=== PATIENT | male | born 1970 | race American Indian/Alaskan Native ===

== ENCOUNTER 2023-11-15 07:17 | Emergency (ER) | payer OTHER, SELFPAY ==
[2023-11-15] VITALS (7 sets, daily range): BP systolic 116–137; BP diastolic 73–95; BMI 25.6
--- NOTE | 2023-11-15 07:59 | ED.GENMED ---
History of Present Illness
General
Chief Complaint: Chest Pain
Source: patient and family
Exam Limitations: none
Time Seen by Provider: 11/15/23 07:36
Nursing documentation reviewed up to this point in time: agreed with
Travel History
Have you had any contact with someone who has COVID-19?: No
Do you have any symptoms of coronavirus? Fever > 100 degrees, chills, cough, shortness of breath, sore throat, loss of taste or smell, muscle aches, or headache?: No
History of Present Illness
History of Present Illness:
52-year-old male presenting to the emergency department today with concerns of abrupt chest comfort waking him from his sleep 6 hours prior to arrival to the emergency department described as central chest pain pressure with associated shortness of
breath no specific palliation or provocation denies similar symptoms in the past denies any lightheadedness, diaphoresis nausea or vomiting. No recent trauma surgery immobilization history of blood clots leg swelling. Patient is not a smoker or
drinker
Review of Systems
Review of Systems
Allergies reviewed?: Yes
All Other Systems: ROS reviewed and negative except as documented in HPI and ROS
Phy Exam
Physical Exam
Physical Exam:
GENERAL: Alert , in no apparent distress
EYE: pupils equal and reactive
NECK: Supple, no significant adenopathy.
ENT: o/p clr, mmm.
CARDIAC: Regular rate and rhythm .
LUNGS: Clear breath sounds bilaterally, no acute respiratory distress, no wheezes/rales/rhonchi
ABDOMEN: Soft, without focal tenderness, no r/g, no cvat
NEUROLOGICAL: Alert and oriented, no focal neuro deficits
SKIN: Warm and dry, skin intact.
MUSCULOSKELETAL: No edema, well perfused.
PSYCH: Normal and appropriate interaction.
Scores
Heart Score for Chest Pain Patients
STEMI patient?: No
History: Slightly or Non-Suspicious
ECG: Normal
Age: >45 - <65 years
Risk Factors: 1 or 2 Risk Factors
Troponin: </= Normal Limit
Heart Score for Chest Pain Patients: 2
Heart Score Risk: 2.5% MACE over next 6 weeks
Course
Orders/Labs/Results
Orders:
Orders
11/15/23 07:18
Electrocardiogram (*1) Urgent
Reason for Study: Chest Pain
EKG- Treatment ONCE
11/15/23 07:59
Cardiac Monitoring- Treatment ONCE
Aspirin 325 mg PO NOW STA
CR Chest - 2 Views Urgent
Comment:
Reason For Exam: cp
11/15/23 08:12
Complete Blood Count/With Diff Urgent
Comprehensive Metabolic Panel Urgent
Magnesium Urgent
Troponin I Urgent
11/15/23 10:40
Troponin I Urgent
Abnormal Lab Results
11/15/23
08:12
RBC 4.63 L 10^6/uL
(4.70-6.10)
Absolute Eos (auto) 0.8 H 10^3/uL
(0-0.7)
Eosinophils % 11.5 H %
(0-6)
Glucose 112 H mg/dl
(70-99)
11/15/23 08:12
11/15/23 08:12
Vital Signs
Initial and Last Documented VS:
Initial Vital Signs
Temp Pulse Resp BP Pulse Ox
98.0 F 67 20 135/95 100
11/15/23 07:19 11/15/23 07:19 11/15/23 07:19 11/15/23 07:19 11/15/23 07:19
Last Documented Vital Signs
Temp Pulse Resp BP Pulse Ox
98.0 F 58 13 121/85 100
11/15/23 07:19 11/15/23 11:15 11/15/23 11:15 11/15/23 11:00 11/15/23 11:15
MDM/Problems Addressed
MDM/Problems Addressed:
52-year-old male presenting to the emergency department today with concerns of chest pain waking him from his sleep 6 hours prior to arrival. Denies similar symptoms in the past no history of known heart disease only history of high cholesterol.
Vital signs normal upon arrival no history of blood clots no recent trauma surgery immobilization PE very unlikely no leg swelling. Normal heart and lung examination EKG nonischemic. No events on the monitor second troponin negative patient per
stable for outpatient follow-up with cardiology return precautions given.
*Critical Care Note
Total Time (30-74mins, 75-104mins- exclusive of procedures): Not Applicable
ED Attending Note
-
Portions of this chart may have been created with voice recognition software.� Occasional wrong word or��sound alike� substitutions may have occurred due to the inherent limitations of voice recognition software.
Discharge Plan
Departure
Patient Disposition: Home (Routine Discharge)
Date of Disposition: 11/15/23
Time of Disposition: 11:52
Patient with high blood pressure during this ER visit?: No
Condition: Good
Covid-19: Not Applicable
Discharge Problem:
Chest pain
Instructions: Chest Pain [facility] Follow Up
Referrals:
Jeana Quevedo PA-C [Family Provider] -
Activity Restrictions/Additional Instructions:
You came to the emergency department today with concerns of chest pain. Here you had a reassuring assessment. Please follow closely with cardiology. Return to the emergency department for any worsening, new or concerning symptoms.
Interventions
Interventions:
*Risk Screen - Suicide Last Done: 11/15/23 07:59
*General Assessment Last Done: 11/15/23 07:59
*Neglect/Abuse Screening Last Done: 11/15/23 07:59
ED- Fall Risk Assessment Last Done: 11/15/23 07:59
*ED COVID-19 Vaccine History Last Done: 11/15/23 07:59
ED- Cardiac Assessment Last Done: 11/15/23 07:59
Discharge Date and Time
Print Language: Tran
[2023-11-15] MEDS: ASPIRIN 325 MG PO (08:12)
[2023-11-15 08:25] LABS: % Basophils 0.7 % (0-2); % Eosinophils 11.5 % (0-6); % Immature Granulocytes 0.3 % (0-0.5); % Lymphocytes 29.5 % (20.5-51.1); % Monocytes 6.4 % (1.7-9.3); % Neutrophils 51.6 % (42.2-75.2); Absolute Basophils 0.1 10^3/uL (0-0.2); Absolute Eosinophils 0.8 10^3/uL (0-0.7); Absolute Lymphocytes 2.2 10^3/uL (1.2-3.4); Absolute Monocytes 0.5 10^3/uL (0.1-0.6); Absolute Neutrophils 3.8 10^3/uL (1.4-6.5); Hematocrit 40.6 % (39.0-52.0); Hemoglobin 13.9 g/dL (13.0-18.0); Mean Corp Hgb Conc. 34.2 g/dL (33.0-37.0); Mean Corpuscular Volume 87.7 fL (80.0-94.0); Mean Platelet Volume 9.4 fL (7.4-10.4); Nucleated Red Blood Cells % 0 % (-); Platelet Count 307 10^3/uL (130-400); Red Blood Cell Count 4.63 10^6/uL (4.70-6.10); Red Cell Dist. Width 11.9 % (11.5-14.5); White Blood Cell Count 7.3 10^3/uL (4.8-10.8)
[2023-11-15 08:37] LABS: ALT (SGPT) 30 U/L (0-50); AST (SGOT) 30 U/L (17-59); Albumin 4.3 g/dl (3.5-5.0); Alkaline Phosphatase 66 U/L (38-126); Blood Urea Nitrogen 15 mg/dl (9-20); Calcium 9.5 mg/dl (8.4-10.2); Carbon Dioxide 26 mmol/L (22-30); Chloride 106 mmol/L (98-107); Estimated Creatinine Clearance 113 ml/min; Glucose 112 mg/dl (70-99); Potassium 4.3 mmol/L (3.5-5.1); Sodium 139 mmol/L (135-145); Total Bilirubin 0.5 mg/dl (0.2-1.3); Total Protein 7.3 g/dl (6.3-8.2); eGFR > 60.00
[2023-11-15 08:49] LABS: Troponin I < 0.012 ng/ml
[2023-11-15 11:19] LABS: Troponin I < 0.012 ng/ml
== END 2023-11-15 11:56 | disposition home or self-care (01) ==
LOC: EMR 07:17
PROVIDERS: Physician Assistant; EMERGENCY PHYSICIAN Emergency Medicine; FAMILY PHYSICIAN Physician Assistant
DX: R07.89 Other chest pain (principal); R06.02 Shortness of breath; E78.5 Hyperlipidemia, unspecified
CPT/HCPCS: 99283; 71046; 80053; 83735; 84484; 85025; 93005